=== PATIENT | male | born 1970 | race American Indian/Alaskan Native ===

== ENCOUNTER 2019-07-24 03:21 | Emergency (ER) | payer MEDICAID ==
[2019-07-24 04:25] LABS: Bacteria,Urine 1+ /HPF (Negative); Bilirubin,Urine NEG (Negative); Blood,Urine NEG (Negative); Color,Urine Yellow (Yellow); Mucus,Urine FEW /HPF; Protein,Urine <15 mg/dL mg/dL (Negative); Urobilinogen,Urine < 2.0 mg/dL (<2.0)
[2019-07-24 04:32] LABS: Amphetamine Screen,Urine PRESUMPTIVE NEGATIVE; Benzodiazepines Screen,Urine PRESUMPTIVE NEGATIVE; Cannabinoid Screen,Urine PRESUMPTIVE NEGATIVE; Cocaine Screen,Urine PRESUMPTIVE NEGATIVE; Methadone Screen,Urine PRESUMPTIVE NEGATIVE; Opiate Screen,Urine PRESUMPTIVE NEGATIVE
[2019-07-24 05:00] LABS: Basophils # (Auto) 0.1 K/mm3 (0.0-0.1); Basophils % (Auto) 0.8 % (0.0-1.8); Eosinophils # (Auto) 0.3 K/mm3 (0.0-0.4); Eosinophils % (Auto) 3.5 % (0.0-4.3); Hematocrit 44.9 % (35.5-45.6); Hemoglobin 15.1 gm/dl (11.8-15.2); Lymphocytes # (Auto) 3.6 K/mm3 (1.2-5.4); Lymphocytes % (Auto) 45.3 % (13.4-35.0); Mean Corpuscular HGB Conc 34 % (32-34); Mean Corpuscular Volume 93 fl (84-94); Monocytes # (Auto) 0.4 K/mm3 (0.0-0.8); Monocytes % (Auto) 5.2 % (0.0-7.3); Platelet Count 368 K/mm3 (140-440); Red Blood Count 4.83 M/mm3 (3.65-5.03); Red Cell Distribution Width 16.6 % (13.2-15.2)
[2019-07-24 05:09] LABS: BUN/Creatinine Ratio 8; Blood Urea Nitrogen 6 mg/dL (9-20); Calcium 9.3 mg/dL (8.4-10.2); Hemolysis Index 5
--- NOTE | 2019-07-24 05:32 | Emergency Department Report ---
ED Psych HPI - General Chief Complaint: Psych Stated Complaint: MH EVAL/SUICIDAL Time Seen by Provider: 07/24/19 05:10 Source: patient, EMS Mode of arrival: Stretcher - History of Present Illness Initial Comments: Patient is a 48-year-old male with a past medical history of bipolar disorder and schizophrenia and depression who is here secondary to episode where he was drinking and stated that he will having thoughts of killing himself. The patient's girlfriend called crisis line and police showed up and transported the patient here. Patient also is admitting that he was having some homicidal thoughts as well. Patient off his psych meds. The patient states he would like to go because he has an appointment with the chiropractor tomorrow. - Related Data Allergies Allergy/AdvReac Type Severity Reaction Status Date / Time No Known Allergies Allergy Unverified 07/24/19 03:40 ED Review of Systems ROS: Stated complaint: MH EVAL/SUICIDAL Other details as noted in HPI Comment: All other systems reviewed and negative ED Past Medical Hx - Past Medical History Previous Medical History?: Yes Hx Psychiatric Treatment: Yes (Bipolar, schizophrenia) - Social History Smoking Status: Unknown if ever smoked Substance Use Type: Prescribed ED Physical Exam - General Limitations: No Limitations General appearance: alert, in no apparent distress, appears intoxicated - Head Head exam: Present: atraumatic, normocephalic - Eye Eye exam: Present: normal appearance, PERRL, EOMI - ENT ENT exam: Present: mucous membranes moist - Neck Neck exam: Present: normal inspection - Respiratory Respiratory exam: Present: normal lung sounds bilaterally. Absent: respiratory distress, wheezes, rales, rhonchi - Cardiovascular Cardiovascular Exam: Present: regular rate, normal rhythm, normal heart sounds. Absent: systolic murmur, diastolic murmur, rubs, gallop - GI/Abdominal GI/Abdominal exam: Present: soft, normal bowel sounds - Rectal Rectal exam: Present: deferred - Extremities Exam Extremities exam: Present: normal inspection - Back Exam Back exam: Present: normal inspection - Neurological Exam Neurological exam: Present: alert, oriented X3 - Psychiatric Psychiatric exam: Present: normal affect, normal mood - Skin Skin exam: Present: warm, dry, intact, normal color. Absent: rash ED Course Vital Signs 07/24/19 03:31 Temperature 98.3 F Pulse Rate 84 Respiratory 18 Rate Blood Pressure 112/76 [Left] O2 Sat by Pulse 96 Oximetry - Reevaluation(s) Reevaluation #1: 07/24/19 05:32 Patient was placed on a cycle and will be evaluated by our assessors. ED Medical Decision Making - Lab Data Result diagrams: 07/24/19 04:12 07/24/19 04:12 Lab Results 07/24/19 07/24/19 07/24/19 Range/Units 03:53 03:53 04:12 WBC (4.5-11.0) K/mm3 RBC (3.65-5.03) M/mm3 Hgb (11.8-15.2) gm/dl Hct (35.5-45.6) % MCV (84-94) fl MCH (28-32) pg MCHC (32-34) % RDW (13.2-15.2) % Plt Count (140-440) K/mm3 Lymph % (Auto) (13.4-35.0) % Millard % (Auto) (0.0-7.3) % Eos % (Auto) (0.0-4.3) % Baso % (Auto) (0.0-1.8) % Lymph # (1.2-5.4) K/mm3 Millard # (0.0-0.8) K/mm3 Eos # (0.0-0.4) K/mm3 Baso # (0.0-0.1) K/mm3 Seg Neutrophils % (40.0-70.0) % Seg Neutrophils # (1.8-7.7) K/mm3 Sodium (137-145) mmol/L Potassium (3.6-5.0) mmol/L Chloride (98-107) mmol/L Carbon Dioxide (22-30) mmol/L Anion Gap mmol/L BUN (9-20) mg/dL Creatinine (0.8-1.5) mg/dL Estimated GFR ml/min BUN/Creatinine Ratio % Glucose (75-100) mg/dL Calcium (8.4-10.2) mg/dL Urine Color Yellow (Yellow) Urine Turbidity Clear (Clear) Urine pH 5.0 (5.0-7.0) Ur Specific [place] 1.012 (1.003-1.030) Urine Protein <15 mg/dl (Negative) mg/dL Urine Glucose (UA) Neg (Negative) mg/dL Urine Ketones Neg (Negative) mg/dL Urine Blood Neg (Negative) Urine Nitrite Neg (Negative) Ur Reducing Substances Not Reportable Urine Bilirubin Neg (Negative) Urine Ictotest Not Reportable Urine Urobilinogen < 2.0 (<2.0) mg/dL Ur Leukocyte Esterase Neg (Negative) Urine WBC (Auto) 1.0 (0.0-6.0) /HPF Urine RBC (Auto) 2.0 (0.0-6.0) /HPF U Epithel Cells (Auto) < 1.0 (0-13.0) /HPF Urine Bacteria (Auto) 1+ (Negative) /HPF Urine Mucus Few /HPF Salicylates < 0.3 L (2.8-20.0) mg/dL Urine Opiates Screen Presumptive negative Urine Methadone Screen Presumptive negative Acetaminophen (10.0-30.0) ug/mL Ur Barbiturates Screen Presumptive negative Ur Phencyclidine Scrn Presumptive negative Ur Amphetamines Screen Presumptive negative U Benzodiazepines Scrn Presumptive negative Urine Cocaine Screen Presumptive negative U Marijuana (THC) Screen Presumptive negative Drugs of Abuse Note Disclamer 07/24/19 07/24/19 07/24/19 Range/Units 04:12 04:12 04:12 WBC 7.9 (4.5-11.0) K/mm3 RBC 4.83 (3.65-5.03) M/mm3 Hgb 15.1 (11.8-15.2) gm/dl Hct 44.9 (35.5-45.6) % MCV 93 (84-94) fl MCH 31 (28-32) pg MCHC 34 (32-34) % RDW 16.6 H (13.2-15.2) % Plt Count 368 (140-440) K/mm3 Lymph % (Auto) 45.3 H (13.4-35.0) % Millard % (Auto) 5.2 (0.0-7.3) % Eos % (Auto) 3.5 (0.0-4.3) % Baso % (Auto) 0.8 (0.0-1.8) % Lymph # 3.6 (1.2-5.4) K/mm3 Millard # 0.4 (0.0-0.8) K/mm3 Eos # 0.3 (0.0-0.4) K/mm3 Baso # 0.1 (0.0-0.1) K/mm3 Seg Neutrophils % 45.2 (40.0-70.0) % Seg Neutrophils # 3.6 (1.8-7.7) K/mm3 Sodium 143 (137-145) mmol/L Potassium 4.4 (3.6-5.0) mmol/L Chloride 105.9 (98-107) mmol/L Carbon Dioxide 24 (22-30) mmol/L Anion Gap 18 mmol/L BUN 6 L (9-20) mg/dL Creatinine 0.8 (0.8-1.5) mg/dL Estimated GFR > 60 ml/min BUN/Creatinine Ratio 8 % Glucose 104 H (75-100) mg/dL Calcium 9.3 (8.4-10.2) mg/dL Urine Color (Yellow) Urine Turbidity (Clear) Urine pH (5.0-7.0) Ur Specific [place] (1.003-1.030) Urine Protein (Negative) mg/dL Urine Glucose (UA) (Negative) mg/dL Urine Ketones (Negative) mg/dL Urine Blood (Negative) Urine Nitrite (Negative) Ur Reducing Substances Urine Bilirubin (Negative) Urine Ictotest Urine Urobilinogen (<2.0) mg/dL Ur Leukocyte Esterase (Negative) Urine WBC (Auto) (0.0-6.0) /HPF Urine RBC (Auto) (0.0-6.0) /HPF U Epithel Cells (Auto) (0-13.0) /HPF Urine Bacteria (Auto) (Negative) /HPF Urine Mucus /HPF Salicylates (2.8-20.0) mg/dL Urine Opiates Screen Urine Methadone Screen Acetaminophen < 5.0 L (10.0-30.0) ug/mL Ur Barbiturates Screen Ur Phencyclidine Scrn Ur Amphetamines Screen U Benzodiazepines Scrn Urine Cocaine Screen U Marijuana (THC) Screen Drugs of Abuse Note Critical care attestation.: If time is entered above; I have spent that time in minutes in the direct care of this critically ill patient, excluding procedure time. ED Disposition Condition: Stable
[2019-07-24 14:18] VITALS: BP 116/82
== END 2019-07-24 14:31 ==
LOC: EEVIPCON 03:21 → ED 03:21
DX: F31.9 Bipolar disorder, unspecified (principal); F20.9 Schizophrenia, unspecified
CPT/HCPCS: 36415; 80048; 80307; 80320; 81001; 85025; G0480